=== PATIENT | male | born 1995 | race Caucasian/White ===

== ENCOUNTER 2016-10-27 20:05 | Emergency (ER) | payer BC ==
[~2016-10-27] VITALS: Ht 182.9 cm; Wt 79.5 kg
[~2016-10-27 20:05] MED LIST: CALAN80 MG PO; LEVAQUIN 5500 MG/TA1 PO; PREDNISONE 5MG5 MG PO
[2016-10-27 20:07] VITALS: TEMP 97.5
[2016-10-27 21:28] VITALS: BP 123/78; PULSE 74
== END 2016-10-27 21:25 | disposition home or self-care (01) ==
LOC: COL.ER 20:05
DX: R00.0 Tachycardia, unspecified (principal)